=== PATIENT | male | born 1975 | race African-American/Black ===

== ENCOUNTER 2020-12-31 15:11 | Emergency (ER) | payer OTHER ==
[~2020-12-31] VITALS: Ht 182.9 cm; Wt 89.8 kg
[2020-12-31 16:13] VITALS: BP 153/76
== END 2020-12-31 21:21 | disposition left against medical advice (07) ==
LOC: ER 15:13
DX: S02.80XA Fracture of other specified skull and facial bones, unspecified side, initial encounter for closed fracture (principal); F12.10 Cannabis abuse, uncomplicated; W18.00XA Striking against unspecified object with subsequent fall, initial encounter; Y93.89 Activity, other specified; Y92.89 Other specified places as the place of occurrence of the external cause; Y99.8 Other external cause status
CPT/HCPCS: 70450